=== PATIENT | male | born 1940 | race Caucasian/White ===

== ENCOUNTER → 2018-06-09 11:43 | Outpatient (CLI) | payer MEDICARE, BC, OTHER, SELFPAY ==
--- NOTE | 2018-06-09 | DI.MRI.S_ITS ---
PROCEDURE: MR HEAD/BRAIN WO/W CON INDICATIONS: TREMOR TECHNIQUE: Noncontrast axial T1 spin echo, axial T2 fast spin echo, sagittal and axial FLAIR, coronal T2 fast spin echo, axial gradient echo, axial diffusion and ADC through the brain. After the administration of contrast, axial and coronal T1 spin echo with fat saturation through the brain. COMPARISON: None. FINDINGS: Image quality: Excellent. CSF spaces: Basal cisterns are patent. No extra-axial fluid collections. Ventricles are normal in size and shape. Brain: No midline shift. No intracranial bleeds or masses. No abnormal intracranial enhancement. There is cerebral volume loss for age. There is periventricular white matter chronic small vessel ischemic change. The brainstem appears normal. Diffusion-weighted images demonstrate no acute ischemic insults. No chronic ischemic insults. Normal intravascular flow voids are present. Skull and face: Calvarial marrow is normal in signal. Orbits appear normal. Note is made of bilateral lens replacements. Sinuses: Sinuses and mastoids appear clear. IMPRESSION: Unremarkable intracranial study for age, without a cause of tremor identified. Note is made of age-appropriate brain parenchymal volume loss and chronic small vessel ischemic changes. No masses or abnormal enhancement can be seen. Dictated by: Fernando Andersen M.D. on 06/09/2018 at 14:11 Approved by: Fernando Andersen M.D. on 06/09/2018 at 14:12
[2018-06-09 13:30] LABS: BUN Creatinine Ratio 13.3 (6-22); Blood Urea Nitrogen 12 mg/dL (9-20); Estimated Glomerular Filt Rate > 60.0 mL/min (>60)
== END ==
PROVIDERS: PCP Internal Medicine; Visit Provider Psychiatry & Neurology Neurology
DX: R25.1 Tremor, unspecified (principal)
CPT/HCPCS: 36415; 70553; 82565; 84520; A9579

== ENCOUNTER 2019-09-04 11:30 | Emergency (ER) | payer MEDICARE, BC, OTHER, SELFPAY ==
[2019-09-04 11:42] VITALS: BP 168/86; PULSE 88; RESP 13; TEMP 36.3; O2SAT 96
--- NOTE | 2019-09-04 12:09 | ED.NECK ---
HPI - Neck Pain/Injury General Chief Complaint: Neck Pain/Injury Stated Complaint: can't turn neck Time Seen by Provider: 09/04/19 11:52 Source: patient Mode of arrival: Ambulatory Limitations: no limitations History of Present Illness HPI Narrative: 79-year-old male history of Parkinson's disease here for evaluation approximately 4 days of neck stiffness. He does not report any specific incident that made his neck hurt. Does have pain with flexion and extension and turning to the left and right. No fevers. Has tried some heat at home without much improvement. Related Data Home Medications Medication Instructions Recorded Confirmed Probiotic 1 cap PO DAILY 09/04/19 09/04/19 acetaminophen 650 mg PO Q6H PRN 09/04/19 09/04/19 amoxicillin 2,000 mg PO .ONCE 09/04/19 09/04/19 aspirin 81 mg PO QAM 09/04/19 09/04/19 atorvastatin 80 mg PO BEDTIME 09/04/19 09/04/19 calcium carbonate-vitamin D3 1 tab PO BID 09/04/19 09/04/19 [Calcium 500 + D (D3)] carbidopa-levodopa 1 tab PO TID 09/04/19 09/04/19 carbidopa-levodopa 1 tab PO TID 09/04/19 09/04/19 cholecalciferol (vitamin D3) 2,000 unit PO DAILY 09/04/19 09/04/19 [Vitamin D3] fluticasone propionate 1 spray INTRANASAL DAILY 09/04/19 09/04/19 hydrocortisone 1 applic TOPICAL PRN PRN 09/04/19 09/04/19 hydrocortisone [Proctozone-HC] 1 applic RI PRN PRN 09/04/19 09/04/19 ibuprofen 600 mg PO Q6H PRN 09/04/19 09/04/19 magnesium oxide 400 mg PO DAILY 09/04/19 09/04/19 metformin 500 mg PO BID 09/04/19 09/04/19 polyethylene glycol 3350 17 g PO PRN PRN 09/04/19 09/04/19 thiamine HCl (vitamin B1) [Vitamin 250 mg PO DAILY 09/04/19 09/04/19 B-1] venlafaxine 75 mg PO QPM 09/04/19 09/04/19 Previous Rx's Medication Instructions Recorded methocarbamol [Robaxin-750] 750 mg PO TID PRN #30 tab 09/04/19 Allergies Allergy/AdvReac Type Severity Reaction Status Date / Time thiopental AdvReac Unknown Verified 09/04/19 12:11 Review of Systems Constitutional Constitutional: Denies fever(s) and Denies headache(s) ENT Ears, Nose, Mouth, and Throat: Denies headache(s) and Reports neck pain Cardiovascular Cardiovascular: Denies chest pain and Denies dyspnea Respiratory Respiratory: Denies dyspnea Gastrointestinal Gastrointestinal: Denies abdominal pain Genitourinary Genitourinary: Denies dysuria Musculoskeletal Musculoskeletal: Denies back pain and Reports neck pain Integumentary/Breasts Skin/Breast: Denies rash Neurologic Neurologic: Denies behavioral changes and Denies headache(s) Psychiatric Psychiatric: Denies behavioral changes Hematologic/Lymphatic Hematologic/Lymphatic: Denies easy bleeding and Denies easy bruising Patient History Medical History Diabetes (Acute) Parkinson's disease (Acute) Social History Smoking Status: Never smoker Substance Use Type: does not use Exam Initial Vital Signs Initial Vital Signs: Vital Signs Temperature 97.3 F L 09/04/19 11:42 Pulse Rate 88 09/04/19 11:42 Respiratory Rate 13 09/04/19 11:42 Blood Pressure 168/86 H 09/04/19 11:42 Pulse Oximetry 96 09/04/19 11:42 Const General: cooperative and comfortable Orientation: alert, awake and oriented x3 HENMT Head: normal to inspection and normocephalic Nose: external nose normal Neck Neck: No full ROM, no meningeal signs, No torticollis and No tracheal deviation Resp Effort & Inspection: normal respiratory effort Back/Spine/Pelvis Other: Tenderness to palpation posterior bilateral cervical tenderness to include tenderness over the trapezius and rhomboids bilaterally Skin Lesions: no lesions Rashes: no rashes Neuro General: alert and awake Cognition: normal cognition Speech: speech normal Gait: normal gait Motor: muscle tone normal throughout Sensory Exam: no sensory deficits noted Extrem General: capillary refill normal Course Orders Ordered: Discontinued Medications Lidocaine HCl (Xylocaine 1% (Pf)) 2 ml INJ NOW ONE Stop: 09/04/19 12:10 Last Admin: 09/04/19 12:16 Dose: 2 ml Documented by: ELIF Vital Signs Vital signs: Vital Signs - 8 hr 09/04/19 11:42 Temperature 97.3 F L Pulse Rate 88 Respiratory Rate 13 Blood Pressure 168/86 H Pulse Oximetry 96 MDM - Neck Pain/Injury MDM Narrative Medical decision making narrative: Patient is a history and physical exam consistent with muscle spasms. It did seem to have 1 particular intense point tenderness to the right lateral aspect of the cervical spine. 2 cc of lidocaine was injected in this area as a trigger point injection. Low suspicion for meningitis. Low suspicion for fracture. Will send home with muscle relaxation. Discussed the importance of avoiding falling. He expressed understanding agreement plan. Discharge Plan Departure Patient Disposition: Home Clinical Impression: Strain of neck muscle Qualifiers: Encounter type: initial encounter Qualified Code(s): S16.1XXA - Strain of muscle, fascia and tendon at neck level, initial encounter Instructions: DI for Cervical Muscle Strain Activity Restrictions/Additional Instructions: Take the medications as directed. He can also do the adjunctive therapy likely discussed to include the heat and ice and massage. Contact your primary provider for follow-up. Return to the emergency department for any new or worsening symptoms Prescriptions: New methocarbamol [Robaxin-750] 750 mg tablet 750 mg PO TID PRN (Reason: muscle spasm) Qty: 30 RF: 0 No Action amoxicillin 500 mg capsule 2,000 mg PO .ONCE RF: 0 atorvastatin 80 mg tablet 80 mg PO BEDTIME RF: 0 acetaminophen 325 mg Tablet 650 mg PO Q6H PRN (Reason: pain) RF: 0 venlafaxine 75 mg capsule,extended release 24hr 75 mg PO QPM RF: 0 polyethylene glycol 3350 17 gram Powder In Packet 17 g PO PRN PRN (Reason: Constipation) RF: 0 carbidopa-levodopa 50-200 mg tablet extended release 1 tab PO TID RF: 0 thiamine HCl (vitamin B1) [Vitamin B-1] 250 mg Tablet 250 mg PO DAILY RF: 0 aspirin 81 mg Tablet,Delayed Release (Dr/Ec) 81 mg PO QAM RF: 0 hydrocortisone [Proctozone-HC] 2.5 % Cream With Perineal Applicator 1 applic RI PRN PRN (Reason: Hemorrhoids) RF: 0 ibuprofen 200 mg Tablet 600 mg PO Q6H PRN (Reason: pain) RF: 0 carbidopa-levodopa 25-100 mg tablet 1 tab PO TID RF: 0 fluticasone propionate 50 mcg/actuation spray,suspension 1 spray INTRANASAL DAILY RF: 0 metformin 500 mg tablet extended release 24 hr 500 mg PO BID RF: 0 calcium carbonate-vitamin D3 [Calcium 500 + D (D3)] 500 mg(1,250mg) -125 unit Tablet 1 tab PO BID RF: 0 cholecalciferol (vitamin D3) [Vitamin D3] 2,000 unit Tablet 2,000 unit PO DAILY RF: 0 magnesium oxide 400 mg magnesium Tablet 400 mg PO DAILY RF: 0 Probiotic 1 cap PO DAILY RF: 0 hydrocortisone 1 applic topical PRN PRN (Reason: Hemorrhoids) RF: 0 Referrals: Kelly Raman MD [Primary Care Provider] -
[2019-09-04] MEDS: LIDOCAINE 1% (PF) 2 ML INJ (12:16)
== END 2019-09-04 13:12 | disposition home or self-care (01) ==
PROVIDERS: Emergency Provider Emergency Medicine; PCP Internal Medicine
DX: S16.1XXA Strain of muscle, fascia and tendon at neck level, initial encounter (principal)
CPT/HCPCS: 99282; 99283

== ENCOUNTER 2022-01-26 12:42 | Emergency (ER) | payer MEDICARE, BC, OTHER, SELFPAY ==
[2022-01-26] VITALS (9 sets, daily range): BP systolic 129–154; BP diastolic 70–84; PULSE 56–72; RESP 10–20; TEMP 36.2; O2SAT 97–100; BMI 25.0
--- NOTE | 2022-01-26 12:58 | DI.RAD.S_ITS ---
PROCEDURE: XR RIBS LT MIN 3V W CXR1V INDICATIONS: fall, left sided rib pain TECHNIQUE: 2 views of the left ribs were acquired, along with a single view chest. COMPARISON: None. FINDINGS: Surgical changes and devices: None. Bones and chest wall: No fractures or dislocations. No suspicious bony lesions. Overlying soft tissues appear unremarkable. Lungs and pleura: No pleural effusions or pneumothorax. Lungs appear clear. Mediastinum: Mediastinal contours appear normal. Heart size is normal. IMPRESSION: No displaced rib fractures visualized. Dictated by: Natty Gipson M.D. on 01/26/2022 at 13:58 Approved by: Natty Gipson M.D. on 01/26/2022 at 13:59
--- NOTE | 2022-01-26 13:11 | PC.NURSE ---
Patient took a fall in yard a couple days ago, increase pain into left chest. Worse with excertion, movement and deep breath. Some nausea reported when pain is bad. Patient states i may of had some dizziness Patient denies dizziness at present and minimal discomfort at rest.
[2022-01-26 13:18] LABS: INR 1.1 (0.9-1.3); Prothrombin Time 11.8 SECONDS (10.1-12.7)
[2022-01-26 13:20] LABS: Add Manual Diff / Slide Review NO; Basophils Absolute Auto 100 /uL (0-100); Basophils Percent Auto 0.9 % (0-2); Eosinophils Absolute Auto 300 /uL (0-450); Eosinophils Percent Auto 3.2 % (2-4); Hematocrit 38.6 % (41-53); Hemoglobin 12.8 g/dL (13.5-17.5); Lymphocytes Absolute Auto 1200 /uL (1100-4500); Mean Corpuscular HGB Conc 33.2 % (30-36); Mean Corpuscular Hemoglobin 30.6 PG (26-34); Mean Corpuscular Volume 92.1 fL (80-100); Monocytes Absolute Auto 700 /uL (0-900); Monocytes Percent Auto 7.5 % (3-14); Neutrophils Absolute Auto 7200 /uL (1500-7000); Neutrophils Percent Auto 75.4 % (50-75); Platelet Count 240 X10^3/uL (150-400); Red Blood Cell Count 4.19 X10^6/uL (4.5-5.9); Red Cell Distribution Width 13.7 % (11.6-14.8); White Blood Cell Count 9.6 X10^3/uL (4.5-11.0)
[2022-01-26 13:21] LABS: PTT Partial Thromboplastin Tim 29 SECONDS (26.4-36.2)
[2022-01-26 13:23] LABS: Alanine Aminotransferase 5 IU/L (<50); Albumin 4.4 g/dL (3.5-5.0); Albumin Globulin Ratio 1.6 (1.0-2.8); Alkaline Phosphatase 61 U/L (38-126); Aspartate Aminotransferase 28 IU/L (17-59); BUN Creatinine Ratio 22.3 (6-22); Bilirubin Total 0.6 mg/dL (0.2-1.3); Blood Urea Nitrogen 25 mg/dL (9-20); Calcium 9.3 mg/dL (8.4-10.2); Carbon Dioxide 29 mmol/L (22-32); Chloride 99 mmol/L (98-107); Creatine Kinase 51 U/L (55-170); Estimated Glomerular Filt Rate > 60 mL/min (>60); Globulin 2.8 g/dL (1.7-4.1); Glucose 141 mg/dL (80-110); HEMOLYSIS < 15 (0-50); Lipase 545 U/L (23-300); Potassium 4.4 mmol/L (3.4-5.1); Sodium 135 mmol/L (137-145); Total Protein 7.2 g/dL (6.3-8.2)
[2022-01-26 13:35] LABS: NT-proBNP (BNP-Adult 18+) 192 pg/mL (<450); Troponin I < 0.012 ng/mL (0.01-0.034)
--- NOTE | 2022-01-26 13:42 | DI.RAD.S_ITS ---
PROCEDURE: XR ELBOW LT MIN 3V INDICATIONS: Fall TECHNIQUE: 3 views of the elbow were acquired. COMPARISON: None. FINDINGS: Bones: No fractures or dislocations. No suspicious bony lesions. Soft tissues: No elbow joint effusion. No suspicious soft tissue calcifications. IMPRESSION: No gross acute elbow fracture or dislocation. No significant joint effusion. Dictated by: Jarek Aguilera M.D. on 01/26/2022 at 14:25 Approved by: Jarek Aguilera M.D. on 01/26/2022 at 14:26
--- NOTE | 2022-01-26 13:42 | ED_ITS ---
HPI - Chest Pain <Jeff Ramos PA-C - Last Filed: 01/26/22 17:03> General Chief Complaint: Chest Pain Stated Complaint: CHEST PAIN Time Seen by Provider: 01/26/22 12:58 Source: patient and family Mode of arrival: Wheelchair History of Present Illness HPI narrative: 81-year-old with past medical history AFib, diabetes presents to the ED status post a mechanical fall sustained 4 days prior to arrival. Patient states that he tripped on some rocks outside his house, fell forward struck left chest, left elbow. Patient denies head strike. Patient denies loss of consciousness. Patient denies being on blood thinners. Patient denies feeling dizzy or lightheaded leading up to the fall. Patient denies fever, chills, shortness of breath, cough, neck pain, headache, nausea, vomiting, abdominal pain, syncope. Patient states that he has some lightheadedness on and off for the last several years when he goes from sitting to standing quickly. Patient says that has been no change to this baseline level of lightheadedness. Related Data Home Medications Medication Instructions Recorded Confirmed Probiotic 1 cap PO DAILY 09/04/19 09/04/19 acetaminophen 325 mg tablet 650 mg PO Q6H PRN 09/04/19 09/04/19 amoxicillin 500 mg capsule 2,000 mg PO .ONCE PRN 09/04/19 09/04/19 aspirin 81 mg tablet,delayed 81 mg PO QAM 09/04/19 09/04/19 release atorvastatin 80 mg tablet 80 mg PO BEDTIME 09/04/19 09/04/19 calcium carbonate 500 mg-vitamin 1 tab PO BID 09/04/19 09/04/19 D3 3.125 mcg (125 unit) tablet (Calcium) carbidopa 25 mg-levodopa 100 mg 1 tab PO TID 09/04/19 09/04/19 tablet carbidopa ER 50 mg-levodopa 200 mg 1 tab PO TID 09/04/19 09/04/19 tablet,extended release cholecalciferol (vitamin D3) 50 2,000 unit PO DAILY 09/04/19 09/04/19 mcg (2,000 unit) tablet (Vitamin D3) fluticasone propionate 50 1 spray INTRANASAL DAILY 09/04/19 09/04/19 mcg/actuation nasal spray,suspension hydrocortisone 1 applic TOPICAL PRN PRN 09/04/19 09/04/19 hydrocortisone 2.5 % topical cream 1 applic [place] PRN PRN 09/04/19 09/04/19 with perineal applicator (Proctozone-HC) ibuprofen 200 mg tablet 600 mg PO Q6H PRN 09/04/19 09/04/19 magnesium oxide 400 mg PO DAILY 09/04/19 09/04/19 metformin 500 mg tablet,extended 500 mg PO BID 09/04/19 09/04/19 release 24 hr polyethylene glycol 3350 17 gram 17 g PO PRN PRN 09/04/19 09/04/19 oral powder packet thiamine HCl (vitamin B1) 250 mg 250 mg PO DAILY 09/04/19 09/04/19 tablet (Vitamin B-1) venlafaxine 75 mg capsule,extended 75 mg PO QPM 09/04/19 09/04/19 release 24 hr Previous Rx's Medication Instructions Recorded methocarbamol 750 mg tablet 750 mg PO TID PRN #30 tab 09/04/19 (Robaxin-750) Allergies Allergy/AdvReac Type Severity Reaction Status Date / Time thiopental AdvReac Unknown Verified 09/04/19 12:11 Review of Systems <Jeff Ramos PA-C - Last Filed: 01/26/22 17:03> Review of Systems ROS Unobtainable: All systems reviewed & are unremarkable except as noted in HPI and below Constitutional Constitutional: Denies chills, Denies fatigue, Denies fever(s), Denies frequent falls, Denies lethargy and Denies weakness Eyes Eyes: Denies change in vision, Denies eye discharge, Denies irritation and Denies loss of vision ENT Ears, Nose, Mouth, and Throat: Denies change in voice, Denies dizziness, Denies neck pain, Denies sore throat and Denies throat swelling Cardiovascular Cardiovascular: Denies chest pain, Denies irregular heart rhythm, Denies lightheadedness, Denies palpitations, Denies dyspnea, Denies dyspnea on exertion and Denies orthopnea Comments: Left-sided chest pain, worse with palpation, movement. Respiratory Respiratory: Denies cough, Denies dyspnea, Denies dyspnea on exertion and Denies wheezing Gastrointestinal Gastrointestinal: Denies abdominal pain, Denies change in bowel habits, Denies diarrhea, Denies nausea and Denies vomiting Genitourinary Genitourinary: Denies hematuria, Denies flank pain, Denies urinary incontinence and Denies urinary urgency Musculoskeletal Musculoskeletal: Denies back pain, Denies muscle weakness, Denies neck pain, Denies numbness and Denies tingling Comments: Left elbow pain Integumentary/Breasts Skin/Breast: Denies pruritus, Denies erythema, Denies rash and Denies wounds Neurologic Neurologic: Denies behavioral changes, Denies confusion, Denies dizziness, Denies frequent falls, Denies loss of vision, Denies numbness, Denies tingling and Denies weakness Psychiatric Psychiatric: Denies anxiety, Denies behavioral changes, Denies confusion, Denies depression, Denies homicidal ideation and Denies suicidal ideation Endocrine Endocrine: Denies fatigue, Denies flushing and Denies palpitations Hematologic/Lymphatic Hematologic/Lymphatic: Denies easy bruising Allergic/Immunologic Allergic/Immunologic: Denies urticaria, Denies throat swelling and Denies wheezing Patient History <Jeff Ramos PA-C - Last Filed: 01/26/22 17:03> Medical History (Updated 01/26/22 @ 15:05 by Jeff Ramos PA-C) Diabetes Parkinson's disease Social History Smoking Status: Never smoker Smoking Status: Never smoker Substance Use Type: does not use Exam <Jeff Ramos PA-C - Last Filed: 01/26/22 17:03> Initial Vital Signs Initial Vital Signs: Vital Signs Temperature 97.2 F L 01/26/22 12:51 Pulse Rate 71 01/26/22 12:51 Respiratory Rate 20 01/26/22 12:51 Blood Pressure 154/70 H 01/26/22 12:51 Pulse Oximetry 100 01/26/22 12:51 Const General: cooperative, healthy appearing and comfortable [facility] Head: normal to inspection Eyes General: Yes appearance normal, both eyes and all related structures Neck Neck: normal visual inspection Chest Chest: localized rib tenderness with anteroposterior compression (Left sided TTP) Resp Effort & Inspection: normal respiratory effort Auscultation: clear to auscultation bilaterally Cardio Rate: regular rate Rhythm: regular rhythm GI Inspection: normal to inspection Other: Abdomen is soft, nontender, nondistended General: No CVA tenderness Back/Spine/Pelvis Back: normal to inspection and No back tenderness Skin General: no rashes or lesions noted Neuro General: patient alert, patient awake and patient oriented x3 Extrem Other: Left elbow with bony tenderness to palpation, bruising. Full range of motion. Strength and sensation intact. Neurovascularly intact. Psych Appearance: grossly normal Mental Status: mental status grossly normal <Nicho Freeman DO - Last Filed: 01/29/22 00:44> Initial Vital Signs Initial Vital Signs: Vital Signs Temperature 97.2 F L 01/26/22 12:51 Pulse Rate 71 01/26/22 12:51 Respiratory Rate 20 01/26/22 12:51 Blood Pressure 154/70 H 01/26/22 12:51 Pulse Oximetry 100 01/26/22 12:51 Course <Jeff Ramos PA-C - Last Filed: 01/26/22 17:03> Orders Ordered: Discontinued Medications Aspirin (Aspirin 81 Mg Chew Tab) 324 mg PO NOW ONE Stop: 01/26/22 12:53 Last Admin: 01/26/22 13:01 Dose: Not Given Documented by: PETE Morphine Sulfate (Morphine 4 Mg/Ml Inj) 4 mg IV NOW ONE Stop: 01/26/22 13:45 Last Admin: 01/26/22 13:58 Dose: 4 mg Documented by: CÉSAR Nitroglycerin (Nitroglycerin 0.4 Mg Sl Tab) 0.4 mg SL [id number] PRN PRN Reason: Chest Pain Vital Signs Vital signs: Vital Signs - 8 hr 01/26/22 12:51 01/26/22 12:52 01/26/22 12:54 Temperature 97.2 F L Pulse Rate 71 72 72 Respiratory Rate 20 13 16 Blood Pressure 154/70 H 154/70 H Pulse Oximetry 100 100 01/26/22 13:00 01/26/22 13:30 01/26/22 14:00 Temperature Pulse Rate 64 59 L 59 L Respiratory Rate 12 10 L 14 Blood Pressure 129/71 Pulse Oximetry 100 99 99 01/26/22 14:30 01/26/22 15:00 01/26/22 15:29 Temperature Pulse Rate 59 L 56 L 56 L Respiratory Rate 12 12 12 Blood Pressure 129/71 136/84 Pulse Oximetry 97 99 98 <Nicho Freeman DO - Last Filed: 01/29/22 00:44> Orders Ordered: Discontinued Medications Aspirin (Aspirin 81 Mg Chew Tab) 324 mg PO NOW ONE Stop: 01/26/22 12:53 Last Admin: 01/26/22 13:01 Dose: Not Given Documented by: PETE Morphine Sulfate (Morphine 4 Mg/Ml Inj) 4 mg IV NOW ONE Stop: 01/26/22 13:45 Last Admin: 01/26/22 13:58 Dose: 4 mg Documented by: CÉSAR Nitroglycerin (Nitroglycerin 0.4 Mg Sl Tab) 0.4 mg SL [id number] PRN PRN Reason: Chest Pain Vital Signs Vital signs: Vital Signs - 8 hr 01/26/22 12:51 01/26/22 12:52 01/26/22 12:54 Temperature 97.2 F L Pulse Rate 71 72 72 Respiratory Rate 20 13 16 Blood Pressure 154/70 H 154/70 H Pulse Oximetry 100 100 01/26/22 13:00 01/26/22 13:30 01/26/22 14:00 Temperature Pulse Rate 64 59 L 59 L Respiratory Rate 12 10 L 14 Blood Pressure 129/71 Pulse Oximetry 100 99 99 01/26/22 14:30 01/26/22 15:00 01/26/22 15:29 Temperature Pulse Rate 59 L 56 L 56 L Respiratory Rate 12 12 12 Blood Pressure 129/71 136/84 Pulse Oximetry 97 99 98 MDM - Chest Pain <Jeff Ramos PA-C - Last Filed: 01/26/22 17:03> Lab Data Lab results narrative: Labs within normal limits Result diagrams: 01/26/22 13:13 01/26/22 13:13 Labs: Lab Results 01/26/22 01/26/22 01/26/22 Range/Units 13:13 13:13 13:13 WBC 9.6 (4.5-11.0) X10^3/uL RBC 4.19 L (4.5-5.9) X10^6/uL Hgb 12.8 L (13.5-17.5) g/dL Hct 38.6 L (41-53) % MCV 92.1 (80-100) fL MCH 30.6 (26-34) PG MCHC 33.2 (30-36) % RDW 13.7 (11.6-14.8) % Plt Count 240 (150-400) X10^3/uL Neut % (Auto) 75.4 H (50-75) % Lymph % (Auto) 13.0 L (25-40) % Owen % (Auto) 7.5 (3-14) % Eos % (Auto) 3.2 (2-4) % Baso % (Auto) 0.9 (0-2) % Neut # (Auto) 7200 H (4219-9411) /uL Lymph # (Auto) 1200 (0253-1150) /uL Owen # (Auto) 700 (0-900) /uL Eos # (Auto) 300 (0-450) /uL Baso # (Auto) 100 (0-100) /uL PT 11.8 (10.1-12.7) SECONDS INR 1.1 (0.9-1.3) APTT 29 (26.4-36.2) SECONDS Sodium 135 L (137-145) mmol/L Potassium 4.4 (3.4-5.1) mmol/L Chloride 99 (98-107) mmol/L Carbon Dioxide 29 (22-32) mmol/L BUN 25 H (9-20) mg/dL Creatinine 1.12 (0.66-1.25) mg/dL Estimated GFR > 60 (>60) mL/min BUN/Creatinine Ratio 22.3 H (6-22) Glucose 141 H (80-110) mg/dL Calcium 9.3 (8.4-10.2) mg/dL Magnesium 2.0 (1.6-2.3) mg/dL Total Bilirubin 0.6 (0.2-1.3) mg/dL AST 28 (17-59) IU/L ALT 5 (<50) IU/L Alkaline Phosphatase 61 (38-126) U/L Total Creatine Kinase 51 L (55-170) U/L CK-MB (CK-2) TNP CK-MB (CK-2) Rel Index TNP Troponin I < 0.012 (0.01-0.034) ng/mL NT-Pro-B Natriuret Pep 192 (<450) pg/mL Total Protein 7.2 (6.3-8.2) g/dL Albumin 4.4 (3.5-5.0) g/dL Globulin 2.8 (1.7-4.1) g/dL Albumin/Globulin Ratio 1.6 (1.0-2.8) Lipase 545 H (23-300) U/L Imaging Data Elbow x-ray: Radiologist's Impression: PROCEDURE:? XR ELBOW LT MIN 3V ? INDICATIONS:? Fall ? TECHNIQUE:? 3 views of the elbow were acquired.? ? COMPARISON:? None. ? FINDINGS:? ? Bones:? No fractures or dislocations.? No suspicious bony lesions.? ? Soft tissues:? No elbow joint effusion.? No suspicious soft tissue calcifications.? ? ? IMPRESSION:? No gross acute elbow fracture or dislocation.? No significant joint effusion.? ? ? Dictated by: Jarek Aguilera M.D. on 01/26/2022 at 14:25 ? ? Approved by: Jarek Aguilera M.D. on 01/26/2022 at 14:26 ? Rib x-ray: Radiologist's Impression: PROCEDURE:? XR RIBS LT MIN 3V W CXR1V ? INDICATIONS:? fall, left sided rib pain ? TECHNIQUE:? 2 views of the left ribs were acquired, along with a single view chest.? ? COMPARISON:? None. ? FINDINGS:? ? Surgical changes and devices:? None.? ? Bones and chest wall:? No fractures or dislocations.? No suspicious bony lesions.? Overlying soft tissues appear unremarkable.? ? Lungs and pleura:? No pleural effusions or pneumothorax.? Lungs appear clear.? ? Mediastinum:? Mediastinal contours appear normal.? Heart size is normal.? ? IMPRESSION:? No displaced rib fractures visualized. ? ? Dictated by: Natty Gipson M.D. on 01/26/2022 at 13:58 ? ? Approved by: Natty Gipson M.D. on 01/26/2022 at 13:59 ? ECG Data Interpretation: Normal sinus rhythm, no axis deviation, no acute ST-T changes MDM Narrative Medical decision making narrative: 81-year-old with past medical history AFib, diabetes presents to the ED status post a mechanical fall sustained 4 days prior to arrival. Concern for rib contusion versus musculoskeletal sprain/strain versus rib fracture versus elbow fracture versus ACS versus cardiac arrhythmias versus pneumonia. Will obtain labs, troponin, NT proBNP, chest x-ray, EKG, rib x-ray, elbow x-ray. Will treat pain with morphine. Will re-evaluate. Rib x-ray, elbow x-ray without acute findings. Labs within normal limits. Patient's symptoms improved with morphine. Discharge patient home with ED return precautions. Patient verbalized understanding. <Nicho Freeman, DO - Last Filed: 01/29/22 00:44> Lab Data Labs: Lab Results 01/26/22 01/26/22 01/26/22 Range/Units 13:13 13:13 13:13 WBC 9.6 (4.5-11.0) X10^3/uL RBC 4.19 L (4.5-5.9) X10^6/uL Hgb 12.8 L (13.5-17.5) g/dL Hct 38.6 L (41-53) % MCV 92.1 (80-100) fL MCH 30.6 (26-34) PG MCHC 33.2 (30-36) % RDW 13.7 (11.6-14.8) % Plt Count 240 (150-400) X10^3/uL Neut % (Auto) 75.4 H (50-75) % Lymph % (Auto) 13.0 L (25-40) % Owen % (Auto) 7.5 (3-14) % Eos % (Auto) 3.2 (2-4) % Baso % (Auto) 0.9 (0-2) % Neut # (Auto) 7200 H (2053-9812) /uL Lymph # (Auto) 1200 (3671-7617) /uL Owen # (Auto) 700 (0-900) /uL Eos # (Auto) 300 (0-450) /uL Baso # (Auto) 100 (0-100) /uL PT 11.8 (10.1-12.7) SECONDS INR 1.1 (0.9-1.3) APTT 29 (26.4-36.2) SECONDS Sodium 135 L (137-145) mmol/L Potassium 4.4 (3.4-5.1) mmol/L Chloride 99 (98-107) mmol/L Carbon Dioxide 29 (22-32) mmol/L BUN 25 H (9-20) mg/dL Creatinine 1.12 (0.66-1.25) mg/dL Estimated GFR > 60 (>60) mL/min BUN/Creatinine Ratio 22.3 H (6-22) Glucose 141 H (80-110) mg/dL Calcium 9.3 (8.4-10.2) mg/dL Magnesium 2.0 (1.6-2.3) mg/dL Total Bilirubin 0.6 (0.2-1.3) mg/dL AST 28 (17-59) IU/L ALT 5 (<50) IU/L Alkaline Phosphatase 61 (38-126) U/L Total Creatine Kinase 51 L (55-170) U/L CK-MB (CK-2) TNP CK-MB (CK-2) Rel Index TNP Troponin I < 0.012 (0.01-0.034) ng/mL NT-Pro-B Natriuret Pep 192 (<450) pg/mL Total Protein 7.2 (6.3-8.2) g/dL Albumin 4.4 (3.5-5.0) g/dL Globulin 2.8 (1.7-4.1) g/dL Albumin/Globulin Ratio 1.6 (1.0-2.8) Lipase 545 H (23-300) U/L Discharge Plan Departure Patient Disposition: Home Clinical Impression: Contusion of chest Instructions: DI for Atypical Chest Pain Activity Restrictions/Additional Instructions: You were evaluated in the ED today for a chest contusion. Your x-ray did not sh ow any rib fractures. Your labs were normal. Your symptoms improved with morphine. You may continue to take Tylenol or ibuprofen for symptom control. Return to the ED if you have worsening chest pain, shortness of breath, fever, chills. Prescriptions: No Action amoxicillin 500 mg capsule 2,000 mg PO .ONCE PRN (Reason: prior to dental appointments) 0RF Rx Instructions: prior to dental appointment atorvastatin 80 mg tablet 80 mg PO BEDTIME 0RF acetaminophen 325 mg Tablet 650 mg PO Q6H PRN (Reason: pain) 0RF venlafaxine 75 mg capsule,extended release 24hr 75 mg PO QPM 0RF polyethylene glycol 3350 17 gram Powder In Packet 17 g PO PRN PRN (Reason: Constipation) 0RF carbidopa-levodopa 50-200 mg tablet extended release 1 tab PO TID 0RF thiamine HCl (vitamin B1) [Vitamin B-1] 250 mg Tablet 250 mg PO DAILY 0RF aspirin 81 mg Tablet,Delayed Release (Dr/Ec) 81 mg PO QAM 0RF hydrocortisone [Proctozone-HC] 2.5 % Cream With Perineal Applicator 1 applic [place] PRN PRN (Reason: Hemorrhoids) 0RF ibuprofen 200 mg Tablet 600 mg PO Q6H PRN (Reason: pain) 0RF carbidopa-levodopa 25-100 mg tablet 1 tab PO TID 0RF fluticasone propionate 50 mcg/actuation spray,suspension 1 spray INTRANASAL DAILY 0RF metformin 500 mg tablet extended release 24 hr 500 mg PO BID 0RF calcium carbonate-vitamin D3 [Calcium 500 + D (D3)] 500 mg(1,250mg) -125 unit Tablet 1 tab PO BID 0RF cholecalciferol (vitamin D3) [Vitamin D3] 2,000 unit Tablet 2,000 unit PO DAILY 0RF magnesium oxide 400 mg magnesium Tablet 400 mg PO DAILY 0RF Probiotic 1 cap PO DAILY 0RF hydrocortisone 1 applic topical PRN PRN (Reason: Hemorrhoids) 0RF methocarbamol [Robaxin-750] 750 mg tablet 750 mg PO TID PRN (Reason: muscle spasm) Qty: 30 0RF Referrals: Kelly Raman MD [Primary Care Provider] - <Nicho Freeman DO - Last Filed: 01/29/22 00:44> Cosign ED Attending [place] Attestation: I was immediately available in the department for consultation. Documentation has been reviewed. I agree with assessment and plan.
[2022-01-26] MEDS: MORPHINE 4 MG/ML INJ IV (13:58)
== END 2022-01-26 15:30 | disposition home or self-care (01) ==
PROVIDERS: Emergency Medicine; Emergency Provider Student in an Organized Health Care Education/Training Program; PCP Internal Medicine
DX: S20.212A Contusion of left front wall of thorax, initial encounter (principal); W18.09XA Striking against other object with subsequent fall, initial encounter; Y92.009 Unspecified place in unspecified non-institutional (private) residence as the place of occurrence of the external cause
CPT/HCPCS: 36415; 71101; 73080; 80053; 82550; 83690; 83735; 83880; 84484; 85025; 85610; 85730; 93005; 96374; 99284; J2270